=== PATIENT | female | born 1995 | race Caucasian/White ===

== ENCOUNTER 2017-10-08 13:45 | Emergency (ER) | payer OTHER, SELFPAY ==
[2017-10-08 14:19] VITALS: BP 130/63; PULSE 103; RESP 20; TEMP 36.6; O2SAT 97; BMI 25.8
--- NOTE | 2017-10-08 14:48 | HMH.EDUTC ---
[facility] [place] Clinical Impression: Leukorrhea Disposition: Home, Self-Care Condition on Discharge: Good Instructions: DI for Vaginal Yeast Infection Additional Instructions: Take diflucan If no improvement in symptoms and/or symptoms change, follow up with [facility] [facility] as you will need a pelvic and vaginal swabs as we discussed at that time. Prescriptions: Fluconazole [Diflucan] 150 mg PO ONCE #2 tab Time of Disposition: 15:08 Medical Decision Making Vital Signs: 10/08/17 14:19 Temperature 98 F Temperature Source Temporal Artery Scan Pulse Rate [Right Brachial] 103 H Respiratory Rate 20 Blood Pressure [Right Arm] 130/63 Blood Pressure Mean [Right Arm] 85 Blood Pressure Source [Right Arm] Automatic Cuff Blood Pressure Position [Right Arm] Sitting 02 Sat by Pulse Oximetry 97 Oxygen Delivery Method Room Air - Grupo Inquiry Pt receiving controlled substance: No [facility] [place] - General Stated complaint: yeast infection Time Seen by Provider: 10/08/17 14:49 Mode of Arrival: Family Vehicle Source of Information: Patient Limitations: No Limitations Description of Symptoms (Recalled from Triage Doc. by RN): YEAST INFECTION HEENT Symptoms (Recalled from RN notes): No Resp Symptoms (Recalled from RN notes): No Skin Symptoms (Recalled from RN notes): No MS Symptoms (Recalled from RN notes): No Functional Status (Recalled from RN notes): NA - History of Present Illness Provider Complaint: c/o a yeast infection that won't go away . Hx of monthly yeast infections since April. Each time after inserting nuva ring. Has discussed w/ OBGYN at [facility]. Had FU to confirm yeast. Each time told to treat w/ monistat and symptoms resolve. This month is no different except hasn't resolved w/ monistat. The same thick white discharge causing itching and irritation. No foul odor. - Related Data Home Medications Medication Instructions Recorded Confirmed levETIRAcetam [Levetiracetam] 500 mg PO BID 10/08/17 10/08/17 Previous Rx's Medication Instructions Recorded Fluconazole [Diflucan] 150 mg PO ONCE #2 tab 10/08/17 Allergies Allergy/AdvReac Type Severity Reaction Status Date / Time acetaminophen [From Vicodin] Allergy Verified 10/08/17 14:24 hydrocodone [From Vicodin] Allergy Verified 10/08/17 14:24 - Worker's Comp Is this a Worker's Comp case?: No [facility] History I have reviewed the patient's past medical history: Yes Comment: epilepsy, mood disorder Laterality Cases: Bilateral: Tonsillectomy - *Social History Smoking Status: Current every day smoker Tobacco Type: cigarettes Alcohol Intake: never - Psychiatric History Expresses thoughts of harming self/others: None Suicide Plan Description: No Plan ROS Obtained: Yes Systems reviewed as appropriate & no additional complaints - Constitutional Constitutional: Denies fatigue, Denies fever(s) - Gastrointestinal Gastrointestingal: Denies: abdominal pain, bloating, change in bowel habits, cramping, nausea, vomiting - Genitourinary Female Genitourinary: Reports as per HPI, Denies abnormal vaginal bleeding, Denies difficulty voiding, Denies painful intercourse, Denies dysuria, Denies hematuria, Denies urinary frequency, Denies urinary incontinence, Denies urinary hesitancy, Denies urinary urgency, Denies vaginal odor - Musculoskeletal Musculoskeletal: Denies back pain - Integumentary/Breasts Skin/Breast: Denies rash - Neurologic Neurologic: Denies dizziness, Denies headache(s) Physical Exam - General General appearance: alert, in no apparent distress - Respiratory Respiratory exam: Absent: respiratory distress - Cardiovascular Cardiovascular exam: Present: regular rate - Abdominal Exam Abdominal exam: Present: soft, normal bowel sounds. Absent: tenderness - Back Exam Back exam: Absent: CVA tenderness (R), CVA tenderness (L) - Neurological Exam Neurological exam: Present: alert, oriented X3
--- NOTE | 2017-10-08 14:54 | ED_ITS ---
[facility] [place]ression: Leuk[place] Disposition: Home, Self-Care Condition on Discharge: Good Instructions: DI for Vaginal Yeast Infection Additional Instructions: Take diflucan If no improvement in symptoms and/or symptoms change, follow up with [facility] as you will need a pelvic and vaginal swabs as we discussed at that time. Prescriptions: Fluconazole [Diflucan] 150 mg PO ONCE #2 tab Time of Disposition: 15:08 Medical Decision Making Vital Signs: 10/08/17 14:19 Temperature 98 F Temperature Source Temporal Artery Scan Pulse Rate [Right Brachial] 103 H Respiratory Rate 20 Blood Pressure [Right Arm] 130/63 Blood Pressure Mean [Right Arm] 85 Blood Pressure Source [Right Arm] Automatic Cuff Blood Pressure Position [Right Arm] Sitting 02 Sat by Pulse Oximetry 97 Oxygen Delivery Method Room Air - Grupo Inquiry Pt receiving controlled substance: No [facility] [place] - General Stated complaint: yeast infection Time Seen by Provider: 10/08/17 14:49 Mode of Arrival: Family Vehicle Source of Information: Patient Limitations: No Limitations Description of Symptoms (Recalled from Triage Doc. by RN): YEAST INFECTION HEENT Symptoms (Recalled from RN notes): No Resp Symptoms (Recalled from RN notes): No Skin Symptoms (Recalled from RN notes): No MS Symptoms (Recalled from RN notes): No Functional Status (Recalled from RN notes): NA - History of Present Illness Provider Complaint: c/o a yeast infection that won't go away . Hx of monthly yeast infections since April. Each time after inserting nuva ring. Has discussed w/ OBGYN at [facility]. Had FU to confirm yeast. Each time told to treat w/ monistat and symptoms resolve. This month is no different except hasn't resolved w/ monistat. The same thick white discharge causing itching and irritation. No foul odor. - Related Data Home Medications Medication Instructions Recorded Confirmed levETIRAcetam [Levetiracetam] 500 mg PO BID 10/08/17 10/08/17 Previous Rx's Medication Instructions Recorded Fluconazole [Diflucan] 150 mg PO ONCE #2 tab 10/08/17 Allergies Allergy/AdvReac Type Severity Reaction Status Date / Time acetaminophen [From Vicodin] Allergy Verified 10/08/17 14:24 hydrocodone [From Vicodin] Allergy Verified 10/08/17 14:24 - Worker's Comp Is this a Worker's Comp case?: No [facility] History I have reviewed the patient's past medical history: Yes Comment: epilepsy, mood disorder Laterality Cases: Bilateral: Tonsillectomy - *Social History Smoking Status: Current every day smoker Tobacco Type: cigarettes Alcohol Intake: never - Psychiatric History Expresses thoughts of harming self/others: None Suicide Plan Description: No Plan ROS Obtained: Yes Systems reviewed as appropriate & no additional complaints - Constitutional Constitutional: Denies fatigue, Denies fever(s) - Gastrointestinal Gastrointestingal: Denies: abdominal pain, bloating, change in bowel habits, cramping, nausea, vomiting - Genitourinary Female Genitourinary: Reports as per HPI, Denies abnormal vaginal bleeding, Denies difficulty voiding, Denies painful intercourse, Denies dysuria, Denies hematuria, Denies urinary frequency, Denies urinary incontinence, Denies urinary hesitancy, Denies urinary urgency, Denies vaginal odor - Musculoskeletal
== END 2017-10-08 15:14 | disposition home or self-care (01) ==
PROVIDERS: Emergency Provider Nurse Practitioner Family; PCP Nurse Practitioner Family
DX: N89.8 Other specified noninflammatory disorders of vagina (principal); F17.210 Nicotine dependence, cigarettes, uncomplicated; Z79.899 Other long term (current) drug therapy
CPT/HCPCS: 99201

== ENCOUNTER 2017-10-18 20:19 | Emergency (ER) | payer OTHER, SELFPAY ==
--- NOTE | 2017-10-18 20:26 | XR_ITS ---
XR hand RT min 3V HISTORY: Pain following injury ITS.REASON: FELL DOWN STAIRS ORDERING PHYSICIAN: Joelle Cisneros PATIENT AGE: 22 years COMPARISON: None FINDINGS: No fracture or dislocation. No lytic or blastic change. There is normal mineralization.. The joint spaces are well-preserved. No significant degenerative/arthritic changes. No erosive changes evident.. IMPRESSION: Negative, no acute finding
[2017-10-18 20:31] VITALS: BP 116/68; PULSE 117; RESP 20; TEMP 36.8; O2SAT 96; BMI 25.8
--- NOTE | 2017-10-18 20:45 | HMH.EDUTC ---
[facility] [place] Clinical Impression: Hand injury Qualifiers: Encounter type: initial encounter Laterality: right Qualified Code(s): S69.91XA - Unspecified injury of right wrist, hand and finger(s), initial encounter Disposition: Home, Self-Care Condition on Discharge: Good Instructions: How To Perform RICE (Rest, Ice, Compress, Elevate), DI for Hand Pain Additional Instructions: *RICE, Rest the extremity, Ice 15-20 minutes 3-4 times daily, Compress- wear the gideon wrap as discussed as much as possible to help reduce swelling and pain, Elevate the extremity when at rest *Gideon wrap is for support and help control swelling, use it except in the shower. Be sure that is not to tight but not to loose either *Elevate when resting *Ibuprofen every 6-8 hours as needed for pain an inflammation. If need something more can take Tylenol in between doses of Ibuprofen to help Immediately follow up for new or worsening of symptoms, or no noticeable improvement over the next 3-5 days Follow up with family doctor for further evaluation and referral to Orthopedics if they deem neccessary I have looked at your xray I placed you in a splint Your xray will have an official reading with radiologist and if any different reading will notify you or follow up with family doctor for reading results Referrals: Delfina Hager [Primary Care Provider] - Forms: Work/School Release Time of Disposition: 20:54 Medical Decision Making - Medical Records Medical records reviewed: Yes: I reviewed the patient's medical records. Vital Signs: 10/18/17 20:31 Temperature 98.3 F Temperature Source Temporal Artery Scan Pulse Rate [Left Brachial] 117 H Respiratory Rate 20 Blood Pressure [Left Arm] 116/68 Blood Pressure Mean [Left Arm] 84 Blood Pressure Source [Left Arm] Automatic Cuff Blood Pressure Position [Left Arm] Sitting 02 Sat by Pulse Oximetry 96 Oxygen Delivery Method Room Air Orders (Tests/Meds): ORDERS Category Date Time Status XR hand RT min 3V Stat Exams 10/18/17 20:26 Taken - Radiology Data #1 Image(s): Hand Image Reviewed: Yes I reviewed the patient's radiology image w/the ED provider Preliminary Findings: No Fracture Seen - Grupo Inquiry Pt receiving controlled substance: No Grupo was queried for this patient: No [facility] [place] - General Stated complaint: AO 1700 Right Hand Injury Mode of Arrival: Ambulatory Source of Information: Patient Limitations: No Limitations Description of Symptoms (Recalled from Triage Doc. by RN): C/O rt hand pain after falling down the stairs while taking the trash out HEENT Symptoms (Recalled from RN notes): No Resp Symptoms (Recalled from RN notes): No Skin Symptoms (Recalled from RN notes): No MS Symptoms (Recalled from RN notes): Yes (rt hand injury) Functional Status (Recalled from RN notes): n/a - History of Present Illness Provider Complaint: Patient state that she was walking down the steps earlier carrying trash when she slipped and feel and landed on her right hand State that ever since she has been having pain and swelling in right hand around her ring finger and pinky finger States that she is also having some bruising and it hurts when she moves it - Related Data Home Medications Medication Instructions Recorded Confirmed levETIRAcetam [Levetiracetam] 500 mg PO BID 10/08/17 10/08/17 Previous Rx's Medication Instructions Recorded Fluconazole [Diflucan] 150 mg PO ONCE #2 tab 10/08/17 Allergies Allergy/AdvReac Type Severity Reaction Status Date / Time acetaminophen [From Vicodin] Allergy Verified 10/08/17 14:24 hydrocodone [From Vicodin] Allergy Verified 10/08/17 14:24 - Worker's Comp Is this a Worker's Comp case?: No [facility] History I have reviewed the patient's past medical history: Yes Medical History: Denies:: Cancer, Diabetes Mellitus Type 1, Diabetes Mellitus Type 2, MRSA Laterality Cases: Bilateral: Tonsillectomy Amputation: No Fractu
--- NOTE | 2017-10-18 20:49 | ED_ITS ---
[facility] [place] Clinical Impression: Hand injury Qualifiers: Encounter type: initial encounter Laterality: right Qualified Code(s): S69.91XA - Unspecified injury of right wrist, hand and finger(s), initial encounter Disposition: Home, Self-Care Condition on Discharge: Good Instructions: How To Perform RICE (Rest, Ice, Compress, Elevate), DI for Hand Pain Additional Instructions: *RICE, Rest the extremity, Ice 15-20 minutes 3-4 times daily, Compress- wear the gideon wrap as discussed as much as possible to help reduce swelling and pain, Elevate the extremity when at rest *Gideon wrap is for support and help control swelling, use it except in the shower. Be sure that is not to tight but not to loose either *Elevate when resting *Ibuprofen every 6-8 hours as needed for pain an inflammation. If need something more can take Tylenol in between doses of Ibuprofen to help Immediately follow up for new or worsening of symptoms, or no noticeable improvement over the next 3-5 days Follow up with family doctor for further evaluation and referral to Orthopedics if they deem neccessary I have looked at your xray I placed you in a splint Your xray will have an official reading with radiologist and if any different reading will notify you or follow up with family doctor for reading results Referrals: Delfina Hager [Primary Care Provider] - Forms: Work/School Release Time of Disposition: 20:54 Medical Decision Making - Medical Records Medical records reviewed: Yes: I reviewed the patient's medical records. Vital Signs: 10/18/17 20:31 Temperature 98.3 F Temperature Source Temporal Artery Scan Pulse Rate [Left Brachial] 117 H Respiratory Rate 20 Blood Pressure [Left Arm] 116/68 Blood Pressure Mean [Left Arm] 84 Blood Pressure Source [Left Arm] Automatic Cuff Blood Pressure Position [Left Arm] Sitting 02 Sat by Pulse Oximetry 96 Oxygen Delivery Method Room Air Orders (Tests/Meds): ORDERS Category Date Time Status XR hand RT min 3V Stat Exams 10/18/17 20:26 Taken - Radiology Data #1 Image(s): Hand Image Reviewed: Yes I reviewed the patient's radiology image w/the ED provider Preliminary Findings: No Fracture Seen - Grupo Inquiry Pt receiving controlled substance: No Grupo was queried for this patient: No [facility] [place] - General Stated complaint: AO 1700 Right Hand Injury Mode of Arrival: Ambulatory Source of Information: Patient Limitations: No Limitations Description of Symptoms (Recalled from Triage Doc. by RN): C/O rt hand pain after falling down the stairs while taking the trash out HEENT Symptoms (Recalled from RN notes): No Resp Symptoms (Recalled from RN notes): No Skin Symptoms (Recalled from RN notes): No MS Symptoms (Recalled from RN notes): Yes (rt hand injury) Functional Status (Recalled from RN notes): n/a - History of Present Illness Provider Complaint: Patient state that she was walking down the steps earlier carrying trash when she slipped and feel and landed on her right hand State that ever since she has been having pain and swelling in right hand around her ring finger and pinky finger States that she is also having some bruising and it hurts when she moves it - Related Data Home Medications Medication Instructions Recorded Confirmed levETIRAcetam [Levetiracetam] 500 mg PO BID 10/08/17 10/08/17 Previous Rx's Medicat
== END 2017-10-18 20:57 | disposition home or self-care (01) ==
PROVIDERS: Emergency Provider Nurse Practitioner; PCP Nurse Practitioner Family
DX: S69.91XA Unspecified injury of right wrist, hand and finger(s), initial encounter (principal); W10.9XXA Fall (on) (from) unspecified stairs and steps, initial encounter; Y93.9 Activity, unspecified; Y92.009 Unspecified place in unspecified non-institutional (private) residence as the place of occurrence of the external cause
CPT/HCPCS: 73130; 99202

== ENCOUNTER 2017-11-22 08:34 | Emergency (ER) | payer OTHER, SELFPAY ==
[2017-11-22 08:36] VITALS: BP 125/71; BP 135/89; PULSE 100; PULSE 98; RESP 18; TEMP 37.2; O2SAT 97; BMI 25.8
--- NOTE | 2017-11-22 09:37 | CT_ITS ---
CT head/brain wo con HISTORY: Seizure ITS.REASON: seizure and trauma. ORDERING PHYSICIAN: Ena Woodward MD PATIENT AGE: 22 years COMPARISON: None TECHNIQUE: Axial images obtained without contrast. Brain and bone windows reviewed. FINDINGS: No midline shift, mass effect, intracranial hemorrhage, hydrocephalus, or extra-axial fluid collection is evident. There is a low density area within the lower aspect of the piter seen only on one view ill-defined measuring approximately 15 x 9 mm and may represent artifact from the skull base. Consider outpatient MRI for confirmation. No hydrocephalus. No intracranial hemorrhage. No other significant anomalies. The calvarium has an unremarkable appearance. There is opacification of the posterior aspect of the left ethmoid air cells. Mild mucosal thickening involves the lateral aspect of the sphenoid sinus on the right. IMPRESSION: 1. No definite acute intracranial findings. 2. Nonspecific isodensity in the lower piter possibly related to artifact. Consider outpatient MRI of the brain without and with contrast for confirmation
--- NOTE | 2017-11-22 09:37 | CT_ITS ---
CT cervical spine wo con CLINICAL INDICATION: Neck pain following seizure ITS.REASON: seizure and trauma. ORDERING PHYSICIAN: Ena Woodward MD PATIENT AGE: 22 years COMPARISON: None FINDINGS: There is normal alignment. No fracture or dislocation evident. No lytic or blastic change. 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 Scattered small nodes in the neck bilaterally. . These measure up to 2.2 x 1.2 cm in the jugulodigastric region on the left. IMPRESSION: 1. No acute fracture. Negative CT scan of the cervical spine. 2. Mild cervical adenopathy
--- NOTE | 2017-11-22 09:37 | XR_ITS ---
XR chest 2V HISTORY: Tobacco use, smoker, pain following fall/seizure ITS.REASON: fall ORDERING PHYSICIAN: Ena Woodward MD PATIENT AGE: 22 years COMPARISON: None available FINDINGS: The cardiomediastinal silhouette and pulmonary vascularity are within normal limits. The lungs are clear without infiltrates, suspicious nodules, or pleural effusions. No acute bony abnormalities. IMPRESSION: Negative chest, no acute finding
--- NOTE | 2017-11-22 09:40 | HMH.EDSEIZ ---
ED Disposition Clinical Impression: Seizure disorder, Infectious mononucleosis, Abnormal computerized tomography of brain, Cervical lymphadenopathy Disposition: Home, Self-Care Condition on Discharge: Fair Instructions: DI for Seizure Disorder -- Adult, DI for Seizure (Not Epilepsy/Seizure Disorder), DI for Seizure Disorder -- Child Additional Instructions: 1- take poli additional keppra 500 mg upon returning to the house. 2- start 750 mg po bid. 3- call Dr Guzman for follow up in AM. 4- I gave you a copy of the CT scan to discuss with Dr Guzman. 5- return if needed for any changes. Referrals: Delfina Hager [Primary Care Provider] - - Critical Care Critical Care Time: No Attestation: On 11/22/17, the high probability of a clinically significant, sudden or life threatening deterioration of the following system(s) required my full and direct attention, intervention and personal management. The time I documented below is in addition to time spent performing reported procedures but includes the following listed in this critical care notation. Medical Decision Making Vital Signs: 11/22/17 08:36 Temperature 98.9 F Temperature Source Oral Pulse Rate [Right Brachial] 100 H Respiratory Rate 18 Blood Pressure [Right Arm] 125/71 Blood Pressure Mean [Right Arm] 89 Blood Pressure Source [Right Arm] Automatic Cuff Blood Pressure Position [Right Arm] Supine 02 Sat by Pulse Oximetry 97 Oxygen Delivery Method Room Air - Lab Data Lab results reviewed: Yes: I reviewed the patient's lab results. Lab Results 11/22/17 09:10: Urine Opiates Screen Negative, Ur Barbituates Screen Negative, Ur Phencyclidine Scrn Negative, Ur Amphetamines Screen Negative, U Methamphetamines Scrn Negative, U Benzodiazepines Scrn Negative, Urine Cocaine Screen Negative, U Marijuana (THC) Screen Negative 11/22/17 09:30: Urine Color Yellow, Urine Appearance Cloudy, Urine pH 6.0, Ur Specific Hessel 1.025, Urine Protein Negative, Urine Glucose (UA) Negative, Urine Ketones Negative, Urine Blood Negative, Urine Nitrate Negative, Urine Bilirubin Negative, Urine Urobilinogen 0.2, Ur Leukocyte Esterase Negative, Urine WBC 3-5, Ur Squamous Epith Cells 20-50, Urine Bacteria 4+ 11/22/17 09:55: WBC 8.9, RBC 4.89, Hgb 14.9, Hct 44.5, MCV 90.9, MCH 30.5, MCHC 33.6, RDW 12.9, Plt Count 265, MPV 6.9 L, Neut % (Auto) 69.9, Lymph % (Auto) 23.2, Bennett % (Auto) 5.5, Eos % (Auto) 1.1, Baso % (Auto) 0.4, Neut # (Auto) 6.2, Lymph # (Auto) 2.1, Bennett # (Auto) 0.5, Eos # (Auto) 0.1, Baso # (Auto) 0.0 11/22/17 09:55: Sodium 138, Potassium 4.5, Chloride 104, Carbon Dioxide 25, Anion Gap 13.5, BUN 16, Creatinine 0.70, Estimated Creat Clear 142, Estimated GFR 103, Est GFR ( Amer) 124, Glucose 91, Calcium 8.7, Magnesium 2.0, Total Bilirubin 0.6, AST 12 L, ALT 39, Alkaline Phosphatase 93, Total Creatine Kinase 57, CK-MB (CK-2) < 0.5, CK-MB (CK-2) Rel Index 0.9, Troponin I < 0.02, Total Protein 7.5, Albumin 4.1, Globulin 3.4 H, Albumin/Globulin Ratio 1.2, Salicylates 1.9 L, Acetaminophen 0 L, Plasma/Serum Alcohol 0 11/22/17 09:55: Serum HCG, Qual Negative Result diagrams: 11/22/17 09:55 11/22/17 09:55 Orders (Tests/Meds): ED MEDICATIONS Discontinued Medications Generic Name Dose Route Start Last Admin Trade Name Freq PRN Reason Stop Dose Admin Sodium Chloride 1,000 mls @ 999 mls/hr 11/22/17 09:45 11/22/17 09:54 Sod Chlor 0.9% 1000ml Bag IV 11/22/17 10:45 999 mls/hr .[id number] EDU Administration ORDERS Category Date Time Status Urine Culture Stat Micro 11/22/17 09:30 Received EKG Request [ECG Request by /Lux] Stat Y 11/22/17 09:39 Ordered - Radiology Data #1 Image(s): Chest Image Reviewed: Yes I reviewed the patient's radiology image, Yes I reviewed the patient's radiology image w/the ED provider Preliminary Findings: Normal/NAD - CT Data CT Scan: Head, C-Spine Time Received: 11:[address] Reviewed: Yes: I have viewed t
--- NOTE | 2017-11-22 09:45 | ED_ITS ---
ED Disposition Clinical Impression: Seizure disorder, Infectious mononucleosis, Abnormal computerized tomography of brain, Cervical lymphadenopathy Disposition: Home, Self-Care Condition on Discharge: Fair Instructions: DI for Seizure Disorder -- Adult, DI for Seizure (Not Epilepsy/ Seizure Disorder), DI for Seizure Disorder -- Child Additional Instructions: 1- take poli additional keppra 500 mg upon returning to the house. 2- start 750 mg po bid. 3- call Dr Guzman for follow up in AM. 4- I gave you a copy of the CT scan to discuss with Dr Guzman. 5- return if needed for any changes. Referrals: Delfina Hager [Primary Care Provider] - - Critical Care Critical Care Time: No Attestation: On 11/22/17, the high probability of a clinically significant, sudden or life threatening deterioration of the following system(s) required my full and direct attention, intervention and personal management. The time I documented below is in addition to time spent performing reported procedures but includes the following listed in this critical care notation. Medical Decision Making Vital Signs: 11/22/17 08:36 Temperature 98.9 F Temperature Source Oral Pulse Rate [Right Brachial] 100 H Respiratory Rate 18 Blood Pressure [Right Arm] 125/71 Blood Pressure Mean [Right Arm] 89 Blood Pressure Source [Right Arm] Automatic Cuff Blood Pressure Position [Right Arm] Supine 02 Sat by Pulse Oximetry 97 Oxygen Delivery Method Room Air - Lab Data Lab results reviewed: Yes: I reviewed the patient's lab results. Lab Results 11/22/17 09:10: Urine Opiates Screen Negative, Ur Barbituates Screen Negative, Ur Phencyclidine Scrn Negative, Ur Amphetamines Screen Negative, U Methamphetamines Scrn Negative, U Benzodiazepines Scrn Negative, Urine Cocaine Screen Negative, U Marijuana (THC) Screen Negative 11/22/17 09:30: Urine Color Yellow, Urine Appearance Cloudy, Urine pH 6.0, Ur Specific [place] 1.025, Urine Protein Negative, Urine Glucose (UA) Negative, Urine Ketones Negative, Urine Blood Negative, Urine Nitrate Negative, Urine Bilirubin Negative, Urine Urobilinogen 0.2, Ur Leukocyte Esterase Negative, Urine WBC 3-5, Ur Squamous Epith Cells 20-50, Urine Bacteria 4+ 11/22/17 09:55: WBC 8.9, RBC 4.89, Hgb 14.9, Hct 44.5, MCV 90.9, MCH 30.5, MCHC 33.6, RDW 12.9, Plt Count 265, MPV 6.9 L, Neut % (Auto) 69.9, Lymph % (Auto) 23.2, Scott % (Auto) 5.5, Eos % (Auto) 1.1, Baso % (Auto) 0.4, Neut # (Auto) 6.2 , Lymph # (Auto) 2.1, Scott # (Auto) 0.5, Eos # (Auto) 0.1, Baso # (Auto) 0.0 11/22/17 09:55: Sodium 138, Potassium 4.5, Chloride 104, Carbon Dioxide 25, Anion Gap 13.5, BUN 16, Creatinine 0.70, Estimated Creat Clear 142, Estimated GFR 103, Est GFR ( Amer) 124, Glucose 91, Calcium 8.7, Magnesium 2.0, Total Bilirubin 0.6, AST 12 L, ALT 39, Alkaline Phosphatase 93, Total Creatine Kinase 57, CK-MB (CK-2) < 0.5, CK-MB (CK-2) Rel Index 0.9, Troponin I < 0.02, Total Protein 7.5, Albumin 4.1, Globulin 3.4 H, Albumin/Globulin Ratio 1.2, Salicylates 1.9 L, Acetaminophen 0 L, Plasma/Serum Alcohol 0 11/22/17 09:55: Serum HCG, Qual Negative Result diagrams: 11/22/17 09:55 11/22/17 09:55 Orders (Tests/Meds): ED MEDICATIONS Discontinued Medications Generic Name Dose Route Start Last Admin Trade Name Freq PRN Reason Stop Dose Admin Sodium Chloride 1,000 mls @ 999 mls/hr 11/22/17 09:45 11/22/17 09:54 Sod Chlor 0.9% 1000ml Bag IV 11/22/17 10:4
[2017-11-22 10:07] LABS: Basophils % 0.4 % (0.1-2.0); Eosinophils # 0.1 K/mm3 (0.0-0.4); Eosinophils % 1.1 % (0.1-12.0); Hematocrit 44.5 % (37.0-47.0); Hemoglobin 14.9 g/dL (12.2-16.2); Lymphocytes # 2.1 K/mm3 (0.7-4.5); Lymphocytes % 23.2 K/mm3 (10-50); Mean Corpuscular HGB Conc 33.6 g/dL (31.8-35.4); Mean Corpuscular Hemoglobin 30.5 pg (27.0-31.2); Mean Corpuscular Volume 90.9 fl (81-99); Mean Platelet Volume 6.9 fl (7.4-10.4); Monocytes # 0.5 K/mm3 (0.1-1.0); Monocytes % 5.5 % (1.7-9.3); Neutrophils # 6.2 K/mm3 (1.8-7.8); Neutrophils % 69.9 % (37.0-80.0); Platelet Count 265 K/mm3 (142-424); Red Blood Count 4.89 M/mm3 (4.20-5.40); Red Cell Distribution Width 12.9 % (11.5-17.5); White Blood Count 8.9 K/mm3 (4.8-10.8)
[2017-11-22 10:14] LABS: Microscopic, Urine URINE MICROSCOPIC (MICROSCOPIC)
[2017-11-22 10:16] LABS: Appearance,Urine CLOUDY (Clear); Bilirubin,Urine Negative (Negative); Blood, Urine Negative (Negative); Color,Urine YELLOW (Yellow); Glucose,Urine (UA) Negative (Negative); Ketones,Urine Negative (Negative); Leukocyte Esterase,Urine Negative (Negative); Nitrate,Urine Negative (Negative); Protein,Urine Negative (Negative); Specific Gravity, Urine 1.025 (1.005-1.030); Urobilinogen,Urine 0.2 EU/dl (0.2)
[2017-11-22 10:23] LABS: Bacteria,Urine 4+ /lpf; Squamous Epithelial Cell,Urine 20-50 #/hpf (0-5)
[2017-11-22 10:25] LABS: Amphetamine/Metha Screen,Urine Negative ng/mL (<1000); Barbiturates Screen,Urine Negative ng/mL (<200); Benzodiazepines Screen,Urine Negative ng/mL (200); Cannabinoid Screen,Urine Negative ng/mL (<50); Cocaine Screen,Urine Negative ng/g (<300); Methadone Screen,Urine Negative ng/mL (<300); Opiate Screen,Urine Negative ng/mL (<300); Phencyclidine Screen,Urine Negative ng/mL (<25)
[2017-11-22 10:26] LABS: HCG Qualitative, Serum Negative (Negative)
[2017-11-22 10:31] LABS: Alanine Aminotransferase 39 U/L (12-78); Albumin Level 4.1 gm/dL (3.4-5.0); Albumin/Globulin Ratio 1.2 (1.1-1.8); Alkaline Phosphatase 93 U/L (46-116); Anion Gap 13.5 mEq/L (5-15); Aspartate Amino Transferase 12 U/L (15-37); Bilirubin,Total 0.6 mg/dL (0.2-1.0); Blood Urea Nitrogen 16 mg/dL (7-18); Calcium 8.7 mg/dL (8.5-10.1); Carbon Dioxide 25 mmol/L (21.0-32.0); Chloride 104 mmol/L (98-107); Creatine Kinase 57 U/L (26-192); Creatinine Clearance Estimated 142 mL/min (0-300); Estimated Glomerular Filt Rate 103 ml/min (>60); GFR (African American) 124 ML/MIN (>60); Globulin 3.4 gm/dl (1.3-3.2); Glucose 91 mg/dL (74-106); Potassium 4.5 mmoL/L (3.5-5.1); Salicylate 1.9 mg/dL (2.8-20.0); Sodium 138 mmol/L (136-145); Total Protein,Serum 7.5 gm/dL (6.4-8.2); Troponin I < 0.02 ng/ml (0.00-0.06)
[2017-11-22 10:33] LABS: Acetaminophen 0 ug/mL (10-30); CKMB Relative Index 0.9 U/L (0-4.0); Creatine Kinase MB < 0.5 mg/ml (0.0-3.6); Ethyl Alcohol 0 mg/dL (0-99)
--- NOTE | 2017-11-22 11:25 | PC.NURSE ---
11:15AM DR TALLEY PLACES CALLS TO [facility] TO GET IN TOUCH WITH NEUROLOGIST. AWAITING RETURN PHONE CALL.
[2017-11-22 12:09] VITALS: BP 123/66; PULSE 61; RESP 18; TEMP 36.7; O2SAT 99
== END 2017-11-22 12:09 | disposition home or self-care (01) ==
PROVIDERS: Emergency Provider Emergency Medicine; PCP Nurse Practitioner Family
DX: G40.909 Epilepsy, unspecified, not intractable, without status epilepticus (principal); B27.90 Infectious mononucleosis, unspecified without complication; R09.89 Other specified symptoms and signs involving the circulatory and respiratory systems; R59.0 Localized enlarged lymph nodes; F17.210 Nicotine dependence, cigarettes, uncomplicated
CPT/HCPCS: 36415; 70450; 71046; 72125; 80053; 80305; 80329; 81001; 82550; 82553; 83735; 84484; 84703; 85025; 87086; 87088; 87186; 93005; 96365; 99283; 99284